=== PATIENT | female | born 1965 | race Hispanic/Latino ===

== ENCOUNTER 2020-04-17 11:24 | Emergency (ER) | payer SELFPAY ==
--- OUTSIDE RECORDS SUMMARY | 2020-04-17 11:28 | XMS REPORT | Continuity of Care Document ---
:1965 Author Organization [facility] t Address [address] [place] [address] Care Team Providers Name Role Phone Brad Attending Clinician Unavailable Payers Payer Name Policy Type Policy Number Effective Date Expiration Date S ource Problems This patient has no known problems. Allergies, Adverse Reactions, Alerts Allergy Allergy Status Severity Reaction(s) Onset Inactive Treating Comm ents Source Name Type Date Date Clinician [place] DA Active [place] [facility] ins 08-14 [place] 00:00: [facility] 00 are [place] Medications This patient has no known medications. Procedures This patient has no known procedures. Encounters Start End Encounter Admission Attending Care Care Encounter Source Date/Time Date/Time Type Type Clinicians Facility Department ID 2020-02-06 2020-02-06 Emergency E [facility] M[facility] [id number] [facility]W 21:40:00 21:40:00 2019-12-10 2019-12-10 Office IVORY [facility]inas [facility] Encounter / Legacy 00:00:00 00:00:00 Visit Jaclyn [id number] C ommuni [id number] [facility] 2019-12-02 2019-12-02 Emergency E MHTW MHTW [id number] MHTW 14:43:00 14:43:00 Results Test Description Test Time Test Comments Results Result Comments Source Novel Coronavirus 2018 nCoV 2019-08-17 21:26:00 Test Item Value Reference Range Interpretation Comme nts Novel Coronavirus 2018 Not Detected Not Detected Testi ng was performed using the nCoV (test code = Aptima GUZMAN S-CoV-2 assay.This test COVID19) was developed a nd its performance characteristics determined by [employer]. This test has not beenFDA doris ared or approved. This test has b een authorized byFDA under an Emerge ncy Use Authorization ( EUA). This testis only authorized for the duration of time the declar ationthat circumstances e xist justifying the authorization o fthe emergency use of in vitro osman gnostic tests fordetection of SARS-CoV-2 virus and/or diagnosi s of COVID-19infecti on under section 564(b)(1) of th e Act, 21 U.S.C.360bbb-3( b)(1), unless the authorization i s terminated orrevoked soone r. When diagnostic testing is nega tive, thepossibility of a false nega tive result should be consideredin the context of a patient's recen t exposures and thepresence of clinical signs and symptoms consis tent withCOVID-19. An individual w ithout symptoms of COVID-19 andwho is not shedding SARS-CoV-2 viru s would expect to have anegative (not detected) result in this assay.Performed At: [facility] [id number] [place], [place] [id number] Kyle L MD Ph:[phone] Novel Coronavirus 2018 [id number] 16:09:00 Test Item Value Reference Interpretation Comments Range Novel Not Detected Not Detected Testing was per formed using Coronavirus 2019 the Aptima SARS-CoV-2 nCoV (test code assay.This t est was developed = COVID19) and its perform ance characteristics determined by [employer]. This test has not be enFDA cleared or approved. Th is test has been authorized byFDA under an Emergency Us e Authorization ( EUA). This testis only aut horized for the duration of time the declarationthat circumstances exist justifyin g the authorization o fthe emergency use of in vitro diagnostic tests fordetect ion of SARS-CoV-2 viru s and/or diagnosis of COVID-19infecti on under section 564(b)( 1) of the Act, 21 U.S.C.360bbb -3(b)(1), unless the auth orization is terminated orre voked sooner. When diagnostic testing is negative, thepo ssibility of a false negative result should be consideredin the context of a patient's recent exposures and t hepresence of clinical signs and symptoms consistent with COVID-19. An individual with out symptoms of COVID-19 and who is not shedding SARS-C oV-2 virus would expect to have anegative (not detected) result in this assay.Performed At: [facility] [address] [id number] Myke Garcia MD Ph:[phone] LACTIC [id number] 00:41:00 Test Item Value Reference Range Interpretation Comments LACTIC ACID (test code = LACT) 1.60 mmol/L 0.5-2.2 N LACTIC [id number] 20:04:00 Test Item Value Reference Range Interpretation Comments LACTIC ACID (test code = LACT) 2.30 mmol/L 0.5-2.2 H Coronavirus 2019 nCoV [id number] 18:42:00 Test Item Value Reference Range Interpretation Comments Coronavirus 2019 Negative Negative THE ID NOW COVID-19 EUA HAS nCoV Bedside (test NOT BEEN FDA CLEARED code = ORAPPROVED. IT HAS BEEN COVNONPUIBED) AUTHORIZED BY THE FDA UNDER ANEMERGENCY USE AUTHORIZATION F OR USE BY AUTHORIZEDLABOR ATORIES AND PATIENT CARE SE TTINGS. THE TEST HAS BEENAU THORIZED ONLY FOR THE DETECTI ON OF NUCLEIC ACID FROMSARS-C oV-2, NOT FOR ANY OTHER VIRUS ES OR PATHOGENS, AND ISONLY AUTHORIZED FOR THE DURATION OF THE DECLARAT ION THATCIRCUMSTANC ES EXIST JUSTIFYING THE AUTHORIZATION OFEMERGENCY USE OF IN VITRO DIAGNOSTIC TEST S FOR DETECTIONAND/OR DIAGNOSIS OF COVID-19 UNDER SECTION 564(B)(1) OF [facility], 21 U.S.C. 360bbb-3 (b)(1), UNLESS THE AUTH ORIZATION ISTERMINATED OR REVOKED SOONER.THE ID N OW COVID-19 EUA HAS NOT BEE N FDA CLEARED ORAPPROVED. IT HAS BEEN AUTHORIZED BY [facility] FDA UNDER ANEMERGENCY USE AUTHORIZATION F OR USE BY AUTHORIZEDLABOR ATORIES AND PATIENT CARE SE TTINGS. THE TEST HAS BEENAU THORIZED ONLY FOR THE DETECTI ON OF NUCLEIC ACID FROMSARS-C oV-2, NOT FOR ANY OTHER VIRUS ES OR PATHOGENS, AND ISONLY AUTHORIZED FOR THE DURATION OF THE DECLARAT ION THATCIRCUMSTANC ES EXIST JUSTIFYING THE AUTHORIZATION OFEMERGENCY USE OF IN VITRO DIAGNOSTIC TEST S FOR DETECTIONAND/OR DIAGNOSIS OF COVID-19 UNDER SECTION 564(B)(1) OF [facility], 21 U.S.C. 360bbb-3 (b)(1), UNLESS THE AUTH ORIZATION ISTERMINATED OR REVOKED SOONER. PROCALCITONIN (PCT)2019-08-15 18:13:00 Test Item Value Reference Range Interpretation Comments PROCALCITONIN (PCT) (test code = < 0.05 ng/mL 0.00-0.50 N PROCAL) LACTIC [id number] 17:55:00 Test Item Value Reference Range Interpretation Comments LACTIC ACID (test code = LACT) 2.50 mmol/L 0.5-2.2 H THROMBOPLASTIN TIME [id number] 17:53:00 Test Item Value Reference Range Interpretation Comments THROMBOPLASTIN TIME PARTIAL (test 32 SECONDS 25.1-36.5 N code = PTT) BASIC METABOLIC [id number] 17:51:00 Test Item Value Reference Range Interpretation Comments SODIUM (test code 142 mmol/L 136-145 N = NA) POTASSIUM (test 3.7 MMOL/L 3.6-5.2 N code = K) CHLORIDE (test 101 MMOL/L 98-110 N code = CL) CARBON DIOXIDE 28 mEq/L 24-32 N (test code = CO2) GLUCOSE (test code 97 mg/dL 70-110 N = GLU) BLOOD UREA 6 mg/dL 7-18 L NITROGEN (test code = BUN) GLOMERULAR >=60 max >60 The estimated FILTRATION RATE estimate glomerular (test code = GFR) filtration rate is computed usingpatient ra ce, age (>18), sex, and serum creatinin e. If anyof the neede d data elements a re missing the Laboratory katlyn ot compute an estimation of t he glomerular filtration rate . CREATININE (test 0.60 mg/dL 0.60-1.30 N code = CREAT) CALCIUM (test code 9.1 mg/dL 8.6-10.4 N = CA) BASIC METABOLIC [id number] 17:48:00 Test Item Value Reference Range Interpretation Comments SODIUM (test code = NA) 142 mmol/L 136-145 N POTASSIUM (test code = K) 3.7 MMOL/L 3.6-5.2 N CHLORIDE (test code = CL) 101 MMOL/L 98-110 N CARBON DIOXIDE (test code = CO2) 28 mEq/L 24-32 N GLUCOSE (test code = GLU) 97 mg/dL 70-110 N BLOOD UREA NITROGEN (test code = mg/dL 7-18 BUN) GLOMERULAR FILTRATION RATE (test >60 code = GFR) CREATININE (test code = CREAT) mg/dL 0.60-1.30 CALCIUM (test code = CA) 9.1 mg/dL 8.6-10.4 N BASIC METABOLIC [id number] 17:47:00 Test Item Value Reference Range Interpretation Comments SODIUM (test code = NA) mmol/L 136-145 POTASSIUM (test code = K) 3.7 MMOL/L 3.6-5.2 N CHLORIDE (test code = CL) MMOL/L 98-110 CARBON DIOXIDE (test code = CO2) mEq/L 24-32 GLUCOSE (test code = GLU) mg/dL 70-110 BLOOD UREA NITROGEN (test code = mg/dL 7-18 BUN) GLOMERULAR FILTRATION RATE (test >60 code = GFR) CREATININE (test code = CREAT) mg/dL 0.60-1.30 CALCIUM (test code = CA) mg/dL 8.6-10.4 UA RFLX MICR CULT IF [id number] 17:45:00 Test Item Value Reference Range Interpretation Comments UA COLOR (test code = COLU) Colorless YELLOW UA APPEARANCE (test code = APPU) CLEAR CLEAR UA GLUCOSE DIPSTICK (test code = NEG MG/DL NEGATIVE DGLUU) UA BILIRUBIN DIPSTICK (test code NEG NEGATIVE = BILU) UA KETONE DIPSTICK (test code = NEG MG/DL NEGATIVE KETU) UA SPECIFIC GRAVITY (test code = 1.000 1.000-1.030 SGU) UA BLOOD DIPSTICK (test code = 1+ NEGATIVE A GARCIA) UA PH DIPSTICK (test code = IRON) 7.0 4.5-8.5 UA PROTEIN DIPSTICK (test code = 1+ MG/DL NEGATIVE A PROU) UA UROBILINOGEN DIPSTICK (test NORMAL EU/dL <=1.0 code = URO) UA NITRITE DIPSTICK (test code = NEG NEGATIVE GALE) UA LEUKOCYTE ESTERASE DIPSTICK NEG NEGATIVE (test code = LEUU) UA WBC (test code = WBCU) 3-5 /HPF 0-3 A UA RBC (test code = RBCU) 0-3 /HPF 0-3 UA WBC CLUMPS (test code = RARE HPF NONE SEEN A WBCUCL) UA BACTERIA (test code = BACU) 1+ /HPF NONE SEEN A UA SQUAMOUS CELLS (test code = RARE /HPF NONE-FEW SQU) UA MUCUS (test code = MUCU) RARE /LPF NONE-FEW Indication for culture: Dysuria/FrequencyCBC W/AUTO [id number] 17:44:00 Test Item Value Reference Range Interpretation Comments WHITE BLOOD CELL (test code = WBC) 3.01 K/mm3 5.0-12.0 L RED BLOOD CELL (test code = RBC) 3.70 M/mm3 4.20-5.40 L HEMOGLOBIN (test code = HGB) 12.7 G/DL 12.0-16.0 N HEMATOCRIT (test code = HCT) 38.0 % 36.0-46.0 N MEAN CELL VOLUME (test code = MCV) 103 fL 81-99 H MEAN CELL HGB (test code = MCH) 34.3 PGM 27-31 H MEAN CELL HGB CONCENTRATION (test 33.4 G/DL 33-37 N code = MCHC) RED CELL DISTRIBUTION WIDTH (test 14.2 % 11.6-16.2 N code = RDW) PLATELET COUNT (test code = PLT) 173 K/mm3 130-400 N MEAN PLATELET VOLUME (test code = 9.8 fl 7.4-10.4 N MPV) NEUTROPHIL % (test code = NT%) 36.6 % 43-65 L IMMATURE GRANULOCYTE % (test code 0.3 % 0.0-2.0 N = IG%) LYMPHOCYTE % (test code = LY%) 50.8 % 20.5-45.5 H MONOCYTE % (test code = MO%) 8.3 % 5.5-11.7 N EOSINOPHIL % (test code = EO%) 2.7 % 0.9-2.9 N BASOPHIL % (test code = BA%) 1.3 % 0.2-1.0 H NUCLEATED RBC % (test code = 0.0 % 0-1.0 N NRBC%) NEUTROPHIL # (test code = NT#) 1.10 K/mm3 2.2-4.8 L LYMPHOCYTE # (test code = LY#) 1.53 K/mm3 1.3-2.9 N MONOCYTE # (test code = MO#) 0.25 K/mm3 0.3-0.8 L EOSINOPHIL # (test code = EO#) 0.08 K/MM3 0.0-0.2 N BASOPHIL # (test code = BA#) 0.04 K/mm3 0.0-0.1 N UA RFLX MICR CULT IF [id number] 17:43:00 Test Item Value Reference Range Interpretation Comments UA COLOR (test code = COLU) Colorless YELLOW UA APPEARANCE (test code = APPU) CLEAR CLEAR UA GLUCOSE DIPSTICK (test code = NEG MG/DL NEGATIVE DGLUU) UA BILIRUBIN DIPSTICK (test code NEG NEGATIVE = BILU) UA KETONE DIPSTICK (test code = NEG MG/DL NEGATIVE KETU) UA SPECIFIC GRAVITY (test code = 1.000 1.000-1.030 SGU) UA BLOOD DIPSTICK (test code = 1+ NEGATIVE A GARCIA) UA PH DIPSTICK (test code = IRON) 7.0 4.5-8.5 UA PROTEIN DIPSTICK (test code = 1+ MG/DL NEGATIVE A PROU) UA UROBILINOGEN DIPSTICK (test NORMAL EU/dL <=1.0 code = URO) UA NITRITE DIPSTICK (test code = NEG NEGATIVE GALE) UA LEUKOCYTE ESTERASE DIPSTICK NEG NEGATIVE (test code = LEUU) Indication for culture: Dysuria/FrequencyTROPONIN I [id number] 17:38:00 Test Item Value Reference Range Interpretation Comments TROPONIN I RAPID 0.01 ng/mL 0.00-0.08 N ISTAT (test code = TROPONIN I TROPIRAP) CRITERIA0.00-0. 08 ng/mL - Negative>0.08 n g/mL - Positive The us e of serial sampling and te sting protocol is are commended practice.An ana maria vated troponin level alone is often not suffi cient fordiagnosis of myocardial infarction. Tro ponin results obtaine d by different assay s may vary.Evaluation of the extent of myoca rdial damage based on increase of troponin would be valid only if similar methodology is used. - XR CHEST 1 [id number] 17:35:00Patient Name: riccardo mccrary Unit No: [id number] EXAMS: CPT: [id number] XR CHEST 1 V 11542 STUDY: - XR CHEST 1 V INDICATION: cough fever TECHNIQUE: AP view of the chest. COMPARISON: None available FINDINGS: No mediastinal shift or enlargement. Normal cardiac silhouette. Normal symmetric lunginflation. No evidence of pulmonary edema, airspace pathology, pleural effusion or pneumothorax. Faint linear density about the left lower lung, which is favored to be subsegmental atelectasis. No suspicious finding in the included bones. IMPRESSION: 1. Probable subsegmental atelectasis in the left lower lobe. 2. Otherwise, no evidence of acute pulmonary process. at 1737 Reported and signed by: BREANA TOUSSAINT MD CC: Troy Guaman MD Technologist: Navdeep Javed Time: DAP (Gy m2): Air Kerma (mGy): Trscr Dt/Tm: 08/15/2019 (1739) by:Sydni Orig Print D/T: S: 08/15/2019 (1358) BATCH NO: N/A Name: riccardo mccrary [facility] [place] Phys: [id number] - Troy Guaman [address] [facility] : 1965 Age: 54 Sex: F [place] Loc: T.ERS Exam Date: 08/15/2019 Status: PRE ER PH: FAX: PAGE 1 Signed Report
--- NOTE | 2020-04-17 12:38 | RAD REPORT ---
EXAM DESCRIPTION: CT - Head Brain Wo Cont - 04/17/2020 12:22 pm CLINICAL HISTORY: head trauma, fall Trauma, head injury COMPARISON: No comparisons TECHNIQUE: All CT scans are performed using dose optimization technique as appropriate and may inclu de automated exposure control or mA/KV adjustment according to patient size. FINDINGS: No intracranial hemorrhage, hydrocephalus or extra-axial fluid collection.No areas of brai n edema or evidence of midline shift. The paranasal sinuses and mastoids are clear. The calvarium is intact. IMPRESSION: No acute intracranial abnormality.
--- NOTE | 2020-04-17 13:10 | ER ---
Nurse's Notes [facility] Name: Nalini Carey Age: 55 yrs Sex: Female : 1965 Arrival Date: 04/17/2020 Time: 11:27 Bed 26 Private MD: Diagnosis: Contusion of unspecified part of head Presentation: 04/17 11:27 Chief complaint: Patient states: "I am at [facility] for alcohol abuse and I aa5 was talking to my counselor when the legs on the chair gave out and I fell and hit my head on a table". Pt c/o headache. Pt currently denies suicidal ideations but states "I was suicidal because I don't want to be at [facility] because it's not the facility for me so they brought me here". Pt states "I've been sober for 23 days now". 11:27 Coronavirus screen: At this time, the client does not indicate any symptoms associated aa5 with coronavirus-19. Ebola Screen: Patient negative for fever greater than or equal to 101.5 degrees Fahrenheit, and additional compatible Ebola Virus Disease symptoms. Initial Sepsis Screen: Does the patient meet any 2 criteria? No. Patient's initial sepsis screen is negative. Does the patient have a suspected source of infection? No. Patient's initial sepsis screen is negative. Risk Assessment: Do you want to hurt yourself or someone else? Patient reports no desire to harm self or others. Onset of symptoms was April 2020. 11:27 Acuity: JUAN A 3 aa5 11:27 Method Of Arrival: Ambulatory aa5 Historical: - Allergies: 11:40 PENICILLINS; aa5 - PMHx: 11:40 Anxiety; Depression; Suicidal ideations; Hypertension; ETOH Abuse; aa5 - Immunization history:: Adult Immunizations unknown. - Social history:: Smoking status: Patient reports the use of cigarette tobacco products, denies chronic smoking, but will smoke occasionally. - Family history:: not pertinent. - Hospitalizations: : No recent hospitalization is reported. Screenin:17 Abuse screen: Denies threats or abuse. Denies injuries from another. patient also zb denies SI/HI at this time. Nutritional screening: No deficits noted. Tuberculosis screening: No symptoms or risk factors identified. Fall Risk None identified. Assessment: 12:10 General: Appears in no apparent distress. comfortable, Behavior is calm, cooperative, zb appropriate for age. Pain: Complains of pain in left supraorbital ridge Pain does not radiate. Pain currently is 5 out of 10 on a pain scale. Quality of pain is described as throbbing, Pain began suddenly, Is continuous, Alleviated by nothing. Also complains of no other associated symptoms. Neuro: Level of Consciousness is awake, alert, obeys commands, Oriented to person, place, time, situation, Reports headache in left frontal area, Denies weakness blurred vision dizziness, difficulty swallowing, paresthesias numbness photophobia diplopia. Cardiovascular: Capillary refill < 3 seconds in bilateral fingers Patient's skin is warm and dry. Respiratory: Airway is patent Respiratory effort is even, unlabored, Respiratory pattern is regular, symmetrical. GI: Abdomen is flat. : No signs and/or symptoms were reported regarding the genitourinary system. EENT: No signs and/or symptoms were reported regarding the EENT system. Derm: Skin is intact, Skin is normal, Skin temperature is warm. Musculoskeletal: Circulation, motion, and sensation intact. Capillary refill < 3 seconds, in bilateral Range of motion: intact in all extremities. 12:20 Reassessment: spoke to patients sister Cass" [phone]". zb 12:30 Reassessment: Patient appears in no apparent distress at this time. Patient and/or zb family updated on plan of care and expected duration. Pain level reassessed. Patient is alert, oriented x 3, equal unlabored respirations, skin warm/dry/pink. no changes at this time. patient denies HI and/or SI. 13:10 Reassessment: [facility] called, advised to chicken picker patient receptions states she zb would let someone know. 13:43 Reassessment: waiting on [employer]. zb Vital Signs: 11:28 BP 173 / 109; Pulse 66; Resp 16 S; Temp 98.5(O); Pulse Ox 97% on R/A; Weight 55.79 kg aa5 (R); Height 5 ft. 3 in. (160.02 cm) (R); Pain 5/10; 13:27 BP 168 / 87; Pulse 78; Resp 15; Pulse Ox 98% on R/A; zb 11:28 Body Mass Index 21.79 (55.79 kg, 160.02 cm) aa5 Saragosa Coma Score: 13:03 Eye Response: spontaneous(4). Verbal Response: oriented(5). Motor Response: obeys rn commands(6). Total: 15. 13:03 Eye Response: spontaneous(4). Verbal Response: oriented(5). Motor Response: obeys rn commands(6). Total: 15. ED Course: 11:27 Patient arrived in ED. em1 11:27 Arm band placed on. aa5 11:36 Redd Braun MD is Attending Physician. rn 11:39 Triage completed. aa5 12:05 Jenae Valdivia RN is Primary Nurse. zb 12:17 Patient has correct armband on for positive identification. Pulse ox on. NIBP on. Door zb closed. Noise minimized. 1:1. 12:21 CT Head Brain wo Cont In Process Unspecified. EDMS 13:42 No provider procedures requiring assistance completed. Patient did not have IV access zb during this emergency room visit. Administered Medications: No medications were administered Outcome: 13:10 Discharge ordered by . rn 13:43 Discharged to [facility]. zb 13:43 Discharged to 13:43 Condition: stable 13:43 Discharge instructions given to patient, Instructed on discharge instructions, follow up and referral plans. Demonstrated understanding of instructions, follow-up care. 14:20 Patient left the ED. zb Signatures: Dispatcher [employer] EDMS Redd Braun MD MD rn Martinez, Eric em1 Michelle Rondon RN RN aa5 Jenae Valdivia RN RN zb Corrections: (The following items were deleted from the chart) 11:41 11:27 Chief complaint: Patient states: "I am at [facility] for alcohol abuse aa5 and I was talking to my counselor when the legs on the chair gave out and I fell and hit my head on a table". Pt c/o headache. Pt currently denies suicidal ideations but states "I was suicidal because I don't want to be at [facility] because it's not the facility for me so they brought me here". aa5 13:26 12:17 Abuse screen: Denies threats or abuse. Denies injuries from another. zb zb 13:28 13:27 BP 148 / 82; Pulse 68bpm; Resp 15bpm; Pulse Ox 98% RA; zb zb
--- NOTE | 2020-04-17 13:11 | EDPHYS ---
Physician Documentation [facility] Name: Nalini Carey Age: 55 yrs Sex: Female : 1965 Arrival Date: 04/17/2020 Time: 11:27 Bed 26 Private MD: ED Physician Redd Braun HPI: 04/17 13:03 This 55 yrs old Female presents to ER via Ambulatory with complaints of facial rn injury. 13:03 The patient or guardian reports injury. The complaints affect the left eye. Onset: The rn symptoms/episode began/occurred just prior to arrival. Severity of symptoms: At their worst the symptoms were mild, in the emergency department the symptoms are unchanged. The patient has not experienced similar symptoms in the past. The patient has not recently seen a physician. Reports at [facility], chair gave or broke, hit face on desk, no LOC, reports bruise above left eye. Denies other injury. Ambulatory. Remembers all events. Not on blood thinners. Denies suicidal ideations. Reports doesn't like the facility she is at and would like to check into a psychiatric facility in [place]. Reports only thoughts of hurting herself in past while drinking but now sober. Reports [facility] staff told her she could be discharged and leave if she wanted to, states made a joke of "discharging a suicidal person", but didn't mean that she is currently suicidal. Just doesn't want to be there. Plans to go to [place], sister is RN and picking her up, and will research facilities. . Historical: - Allergies: 11:40 PENICILLINS; aa5 - PMHx: 11:40 Anxiety; Depression; Suicidal ideations; Hypertension; ETOH Abuse; aa5 - Immunization history:: Adult Immunizations unknown. - Social history:: Smoking status: Patient reports the use of cigarette tobacco products, denies chronic smoking, but will smoke occasionally. - Family history:: not pertinent. - Hospitalizations: : No recent hospitalization is reported. ROS: 13:03 Constitutional: Negative for fever, chills, and weight loss, Eyes: Negative for injury, rn pain, redness, and discharge, Neck: Negative for injury, pain, and swelling, Cardiovascular: Negative for chest pain, palpitations, and edema, Respiratory: Negative for shortness of breath, cough, wheezing, and pleuritic chest pain, Abdomen/GI: Negative for abdominal pain, nausea, vomiting, diarrhea, and constipation, Back: Negative for injury and pain, MS/Extremity: Negative for injury and deformity, Skin: Negative for rash Neuro: Negative for weakness, numbness, tingling, and seizure. Exam: 13:03 Constitutional: This is a well developed, well nourished patient who is awake, alert, rn and in no acute distress. Head/Face: Normocephalic Eyes: + small, approx 1cm superficial hematoma superior and lateral to left eye. Neck: No midline tenderness Cardiovascular: Regular rate and rhythm. No pulse deficits. Respiratory: No increased work of breathing, no retractions or nasal flaring. Abdomen/GI: soft, non-tender Back: No spinal tenderness. MS/ Extremity: Pulses equal, no cyanosis. Neurovascular intact. Full, normal range of motion. Equal circumference. Neuro: Awake and alert, GCS 15, oriented to person, place, time, and situation. Cranial nerves II-XII grossly intact. Motor strength 5/5 in all extremities. Sensory grossly intact. Cerebellar exam normal. Normal gait. Vital Signs: 11:28 BP 173 / 109; Pulse 66; Resp 16 S; Temp 98.5(O); Pulse Ox 97% on R/A; Weight 55.79 kg aa5 (R); Height 5 ft. 3 in. (160.02 cm) (R); Pain 5/10; 13:27 BP 168 / 87; Pulse 78; Resp 15; Pulse Ox 98% on R/A; zb 11:28 Body Mass Index 21.79 (55.79 kg, 160.02 cm) aa5 Adriano Coma Score: 13:03 Eye Response: spontaneous(4). Verbal Response: oriented(5). Motor Response: obeys rn commands(6). Total: 15. 13:03 Eye Response: spontaneous(4). Verbal Response: oriented(5). Motor Response: obeys rn commands(6). Total: 15. MDM: 11:37 Patient medically screened. rn 13:03 Differential diagnosis: Contusion of head, face, Intracranial bleed- Concussion. Data rn reviewed: vital signs, nurses notes, radiologic studies, CT scan, and as a result, I will discharge patient. Counseling: I had a detailed discussion with the patient and/or guardian regarding: the historical points, exam findings, and any diagnostic results supporting the discharge/admit diagnosis, radiology results, the need for outpatient follow up, to return to the emergency department if symptoms worsen or persist or if there are any questions or concerns that arise at home. Special discussion: I discussed with the patient/guardian in detail that at this point there is no indication for admission to the hospital. It is understood, however, that if the symptoms persist or worsen the patient needs to return immediately for re-evaluation. ED course: Patient evaluated again, still denies suicidal ideations or plans to hurt herself. Just wants out of [facility] place. . 04/17 11:50 Order name: CT Head Brain wo Cont; Complete Time: 12:52 rn Administered Medications: No medications were administered Disposition: 04/17/20 13:10 Discharged to Home. Impression: Contusion of unspecified part of head. - Condition is Stable. - Discharge Instructions: Contusion, Facial or Scalp Contusion. - Medication Reconciliation Form, Thank You Letter, Antibiotic Education, Prescription Opioid Use form. - Follow up: Private Physician; When: As needed; Reason: Recheck today's complaints, Re-evaluation by your physician. - Problem is new. - Symptoms have improved. Signatures: Dispatcher [employer] EDMS Redd Braun MD MD rn Calderon, Audri, RN RN aa5 Brown, Zipporah, RN RN zb Corrections: (The following items were deleted from the chart) 14:20 13:10 04/17/2020 13:10 Discharged to Home. Impression: Contusion of unspecified part of zb head. Condition is Stable. Forms are Medication Reconciliation Form, Thank You Letter, Antibiotic Education, Prescription Opioid Use. Follow up: Private Physician; When: As needed; Reason: Recheck today's complaints, Re-evaluation by your physician. Problem is new. Symptoms have improved. rn
[2020-04-17 15:53] VITALS: TEMP 98.5
[2020-04-17 15:55] VITALS: BP 168/87; O2SAT 98
== END 2020-04-17 14:20 | disposition home or self-care (01) ==
LOC: ER 11:24
DX: S00.83XA Contusion of other part of head, initial encounter (principal); W07.XXXA Fall from chair, initial encounter; Y93.89 Activity, other specified; Y92.89 Other specified places as the place of occurrence of the external cause; Z88.0 Allergy status to penicillin; I10 Essential (primary) hypertension; F17.210 Nicotine dependence, cigarettes, uncomplicated
CPT/HCPCS: 70450; 99283